=== PATIENT | female | born 1995 | race Caucasian/White ===

== ENCOUNTER 2021-02-04 12:07 | Emergency (ER) | payer OTHER, BC, SELFPAY ==
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
[2021-02-04 12:17] VITALS: BP 135/78; PULSE 105; RESP 14; TEMP 36.7; O2SAT 100
== END 2021-02-04 13:03 | disposition home or self-care (01) ==
PROVIDERS: Emergency Provider Nurse Practitioner Family
DX: S29.012A Strain of muscle and tendon of back wall of thorax, initial encounter (principal); V49.40XA Driver injured in collision with unspecified motor vehicles in traffic accident, initial encounter
CPT/HCPCS: 71046; 71100; 99213; G0463

== ENCOUNTER 2022-10-23 12:37 | Emergency (ER) | payer BC, SELFPAY ==
[2022-10-23 12:44] VITALS: BP 141/76; PULSE 100; RESP 18; TEMP 36.9; O2SAT 100
--- NOTE | 2022-10-23 12:54 | ED.URI ---
HPI - URI/Sore Throat General Chief Complaint: Upper Respiratory Infection Stated Complaint: sore throat / cough Time Seen by Provider: 10/23/22 12:56 Source: patient, RN notes reviewed and old records reviewed Mode of arrival: ambulatory Limitations: no limitations History of Present Illness HPI Narrative: 27 year old female presents to [facility] with complaints of sore throat, cough, congestion and nasal drainage for the past 3 days. Patient reports that her left eye started getting red and has had some yellowish drainage from her eye since last night with crusting to her left eye noted this morning.Patient reports that she has medication at home new bottle of eye drops that she will use for her left eye. Patient was previously treated for conjunctivitis of right eye about a month ago, strep throat also and ear infection.Patient reports no fevers, chills or sweats, or any body aches. MD elicited complaint: cough, sore throat and other (eye drainage left) Pertinent past history: seasonal allergies Onset (ago): day(s) (3) Pain scale (0-10): 6 Able to tolerate fluids by mouth: Yes Treatments prior to arrival: cold medicine and other (allergy med) Related Data Home Medications Medication Instructions Recorded Confirmed norethindrone 1 mg-ethinyl See Rx Instructions .Route .COMPLEX 10/23/22 10/23/22 estradiol 20 mcg (24)-iron 75 mg (4) tablet (Alison 24 Fe) Allergies Allergy/AdvReac Type Severity Reaction Status Date / Time No Known Allergies Allergy Verified 10/23/22 12:42 Review of Systems Review of Systems: CONSTITUTIONAL: Denies malaise, chills, sweats, or fever. EYES: Denies visual changes, positive for redness, or discharge left eye ENT: Reports rhinorrhea, congestion, sinus pain, no otalgia positive for sore throat. CARDIOVASCULAR: Denies chest pain, palpitations, or edema. RESPIRATORY: Reports cough.? Denies dyspnea. GASTROINTESTINAL: Denies abdominal pain, nausea, vomiting, diarrhea SKIN: Denies rash or itching. MUSCULOSKELETAL: Denies myalgia. NEUROLOGIC: reports headache. All systems reviewed & are unremarkable except as noted in HPI and below PMFSH Past Medical History Medical History (Updated 10/25/22 @ 10:40 by Zakiya Thrasher NP) Ear infection Strep throat Social History Social History (Updated 10/25/22 @ 10:38 by Zakiya Thrasher NP) Smoking status: Never smoker Alcohol intake: current Alcohol use details: social Substance use type: does not use Living arrangements: with family Gender identity (if verbalized by the patient): Female Comments At time of signature, agree with nursing past medical, surgical, social and family history. There is no relevant family history pertinent to the presenting complaint Exam Narrative: GENERAL: Well-appearing, well-nourished, and in no acute distress. HEAD: Normocephalic EYES: PERRLA, conjunctivae red left eye with discharge ENT: Nares clear, turbinates edematous and erythematous, clear discharge. Mucous membranes moist. TM pearly veliz with dull light reflex bilaterally; no tragal tenderness. Oropharynx erythematous without lesions. Tonsils not enlarged and without exudate, no drooling, no hoarseness, no trismus, uvula midline.post nasal discharge NECK: Supple. No lymphadenopathy CHEST: Clear to auscultation, breath sounds equal. No wheezing, rhonchi, rales, or stridor. No respiratory distress, speaks in full sentences.ADOLFO 100% on room air HEART: Regular rate and rhythm. No murmur heard. SKIN: Warm, dry, no rash. NEURO: Alert and oriented x3. PSYCH: Normal mood and affect Course Course Emergency Course: Patient is aware of diagnosis, understands and agrees to treatment plan.? Anticipatory guidance given.? Patient agrees to follow-up as directed and is aware of reasons to seek care at the emergency department. Portions of this record may have been created with voice recognition software
== END 2022-10-23 13:20 | disposition home or self-care (01) ==
PROVIDERS: Emergency Provider Registered Nurse; PCP Hospitalist
DX: J06.9 Acute upper respiratory infection, unspecified (principal); R05.9 Cough, unspecified; H10.9 Unspecified conjunctivitis
CPT/HCPCS: 87081; 87880; 99213; G0463